=== PATIENT | male | born 1945 | race Two or more races ===

== ENCOUNTER 2024-01-04 07:12 | Emergency (ER) | payer OTHER ==
[~2024-01-04] VITALS: Ht 170.2 cm; Wt 81.6 kg
[2024-01-04] MEDS ORDERED: KETOROLAC TROMETHAMINE 60 MG VIAL IM ONE ×2 (08:45→08:47)
[2024-01-04] MEDS ORDERED: ORPHENADRINE CITRATE 30 MG/ML AMPUL IM ONE (08:45)
[2024-01-04] MEDS ORDERED: ORPHENADRINE CITRATE 30 MG/ML AMPUL ONE (08:47)
[2024-01-04] MEDS ORDERED: KETO10TA2 PO (10:03)
== END 2024-01-04 10:17 | disposition home or self-care (01) ==
LOC: EDBD 07:12 → ER 07:12
DX: S49.82XA Other specified injuries of left shoulder and upper arm, initial encounter (principal); W01.0XXA Fall on same level from slipping, tripping and stumbling without subsequent striking against object, initial encounter; Y93.89 Activity, other specified; Y92.89 Other specified places as the place of occurrence of the external cause; E78.00 Pure hypercholesterolemia, unspecified; Z85.46 Personal history of malignant neoplasm of prostate
CPT/HCPCS: 71045; 73030; 73070; 73080; 73100; 73502; 73560; 73610; 96372; 99284; J1885; J2360